=== PATIENT | male | born 1990 | race Caucasian/White ===

== ENCOUNTER 2016-08-22 12:13 | Observation (INO) | payer MEDICAID, OTHER ==
[2016-08-22] MEDS ORDERED: KETOROLAC 30 MG/1 ML SDV IVP ONE (12:46)
[2016-08-22] MEDS ORDERED: NS 1,000 ML IV ONE (12:46)
--- NOTE | 2016-08-22 12:46 | UCPHY ---
H & P Time Seen by Provider: 08/22/16 12:30 Patient Type: New HPI/ROS: 25-year-old male presents complaining of fevers chills cough that began on Sunday sudden onset with very poor appetite and severe body aches. patient is a former smoker denies smoking recently. Denies drug use denies IV drug use. Review of systems General Positive fever positive chills positive weakness positive poor appetite HEENT no eye pain no eye discharge. No eye redness, no sore throat Respiratory positive cough positive shortness of breath Cardiac no chest pain, no peripheral edema GI no abdominal pain, no diarrhea, no constipation, no nausea, no vomiting no flank pain, no hematuria, no dysuria Musculoskeletal no myalgias, no joint pain Heme no easy bruising, no easy bleeding Endo no polyuria, no polydipsia Skin no rashes, no pruritus Neuro no syncope, no dizziness, no headaches Psych is no suicidal ideation, no homicidal ideation Past Medical/Surgical History: childhood asthma, has not used an inhaler for the last 3 years Social History: alcohol socially, denies drug use Smoking Status: Former smoker Physical Exam: 25-year-old male alert and oriented appears ill, febrile, tachypnea tachycardic Atraumatic normocephalic Extraocular muscles intact, anicteric Nares mild yellowish discharge Oropharynx mild erythema no tonsillar swelling no exudate no uvular deviation, tolerating own secretions Neck supple no lymphadenopathy Lungs clear to auscultation bilaterally Heart Rapid regular rhythm without murmur rub or gallop Abdomen normoactive bowel sounds soft nontender Extremities no cyanosis clubbing or edema Skin no rash Constitutional: Initial Vital Signs Temperature (C) 38.0 C 08/22/16 12:17 Heart Rate 95 08/22/16 12:17 Respiratory Rate 20 08/22/16 12:17 Blood Pressure 127/63 H 08/22/16 12:17 O2 Sat (%) 90 L 08/22/16 12:17 O2 Delivery Mode Room Air O2 (L/minute) 2 Allergies/Adverse Reactions: Sulfa (Sulfonamide Antibiotics) Allergy (Verified 08/22/16 12:25) Home Medications: Medication Instructions Recorded NK [No Known Home Meds] 08/22/16 Medical Decision Making - Diagnostics Imaging: Chest x-ray bibasilar infiltrate ED Course/Re-evaluation: patient seen and evaluated for cough fevers chills body aches chest x-ray positive bibasilar infiltrate CBC within normal limits Lactate negative blood cultures pending patient given IV fluids, Toradol 30 mg IV, DuoNeb while in urgent care additionally IV antibiotics have been started impression community-acquired pneumonia plan ceftriaxone 2 g IV piggyback and Zithromax 500 mg IV piggyback patient to be transferred to [facility] to be admitted to the [facility] to Dr. Suresh - Data Points Laboratory Results: Laboratory Results 08/22/16 13:00 08/22/16 13:00 08/22/16 08/22/16 13:00 12:35 WBC 10.86 H 10^3/uL (3.80-9.50) RBC 5.32 10^6/uL (4.40-6.38) Hgb 15.7 g/dL (13.7-17.5) Hct 43.6 % (40.0-51.0) MCV 82.0 fL (81.5-99.8) MCH 29.5 pg (27.9-34.1) MCHC 36.0 g/dL (32.4-36.7) RDW 12.2 % (11.5-15.2) Plt Count 239 10^3/uL (150-400) MPV 9.6 fL (8.7-11.7) Neut % (Auto) 70.8 % (39.3-74.2) Lymph % (Auto) 13.4 L % (15.0-45.0) Cassia % (Auto) 14.7 H % (4.5-13.0) Eos % (Auto) 0.2 L % (0.6-7.6) Baso % (Auto) 0.4 % (0.3-1.7) Nucleat RBC Rel Count 0.0 % (0.0-0.2) Absolute Neuts (auto) 7.70 H 10^3/uL (1.70-6.50) Absolute Lymphs (auto) 1.45 10^3/uL (1.00-3.00) Absolute Monos (auto) 1.60 H 10^3/uL (0.30-0.80) Absolute Eos (auto) 0.02 L 10^3/uL (0.03-0.40) Absolute Basos (auto) 0.04 10^3/uL (0.02-0.10) Absolute Nucleated RBC 0.00 10^3/uL (0-0.01) Immature Gran % 0.5 % (0.0-1.1) Immature Gran # 0.05 10^3/uL (0.00-0.10) VBG Lactic Acid 0.9 mmol/L (0.7-2.1) Sodium 134 mEq/L (134-144) Potassium 3.4 L mEq/L (3.5-5.2) Chloride 98 mEq/L (97-110) Carbon Dioxide 23 mEq/l (22-31) Anion Gap 13 mEq/L (8-16) BUN 8 mg/dL (7-23) Creatinine 0.8 mg/dL (0.7-1.3) Estimated GFR > 60 Glucose 105 H mg/dL (70-100) Calcium 9.2 mg/dL (8.5-10.4) Influenza Typ A,B (DFA) NEGATIVE FOR FLU (NEGATIVE) Medications Given: Discontinued Medications Albuterol/Ipratropium (Duoneb) 3 ml IH EDNOW ONE Stop: 08/22/16 13:57 Last Admin: 08/22/16 14:10 Dose: 3 ml Sodium Chloride (Ns) 1,000 mls @ 0 mls/hr IV ONCE ONE PRN Reason: Wide Open Stop: 08/22/16 12:47 Last Admin: 08/22/16 13:05 Dose: 1,000 mls Ceftriaxone Sodium 2 gm/ (Dextrose) 50 mls @ 100 mls/hr IV EDNOW ONE PRN Reason: Protocol Stop: 08/22/16 15:01 Last Admin: 08/22/16 15:31 Dose: 50 mls Ketorolac Tromethamine (Toradol) 30 mg IVP EDNOW ONE Stop: 08/22/16 12:47 Last Admin: 08/22/16 13:05 Dose: 30 mg Departure - Departure Disposition: [facility] Clinical Impression: Pneumonia Condition: Good - PQRS PQRS Measurement: 134: Depression screening and followup, PRIME MD-PHQ2 (12 years and older) Over the last 2 weeks, how often have you been bothered by any of the following problems? 1. Feeling down, depressed, or hopeless? 2. Little interest or pleasure in doing things? Patient answered no to both 1 and 2 130: Documentation of medications. Reviewed all patient medications, doses, route and frequency. 226: Do you smoke? No. 47: 65 and older: Advanced care planning. Patient designates surrogate decision maker as spouse.. [Patient has advanced directive.] 51: 18 years old and older with diagnosis of COPD, spirometry performance. [Patient has no history of COPD 52: 18 years old and older with COPD and symptoms of COPD or FEV1<60% predicted prescribed a B Agonist. [Spirometry not performed; equipment not available.]
[2016-08-22 13:09] LABS: % IMMATURE GRANULYOCYTES 0.5 % (0.0-1.1); ABSOLUTE IMMATURE GRANULOCYTES 0.05 10^3/uL (0.00-0.10); ADD DIFF? NO; ADD MORPH? NO; ADD SCAN? NO; FRAGMENT RBC FLAG 0 (0-99); HEMATOCRIT 43.6 % (40.0-51.0); LEFT SHIFT FLG 20 (0-99); LIPEMIA HEMOLYSIS FLAG 90 (0-99); PLATELET CLUMPS FLAG 10 (0-99); RED CELL DISTRIBUTION WIDTH 12.2 % (11.5-15.2)
[2016-08-22 13:12] LABS: ATYPICAL LYMPHOCYTE FLAG 30 (0-99); HEMOGLOBIN 15.7 g/dL (13.7-17.5); MEAN CELL HEMOGLOBIN 29.5 pg (27.9-34.1); MEAN PLATELET VOLUME 9.6 fL (8.7-11.7); PLATELET COUNT 239 10^3/uL (150-400); RED BLOOD CELL COUNT 5.32 10^6/uL (4.40-6.38)
[2016-08-22 13:20] LABS: ANION GAP 13 mEq/L (8-16); CALCIUM 9.2 mg/dL (8.5-10.4); CARBON DIOXIDE 23 mEq/l (22-31); CHLORIDE 98 mEq/L (97-110); CREATININE 0.8 mg/dL (0.7-1.3); GLOMERULAR FILTRATION RATE > 60; GLUCOSE 105 mg/dL (70-100); POTASSIUM 3.4 mEq/L (3.5-5.2); SODIUM 134 mEq/L (134-144)
[2016-08-22] MEDS ORDERED: IPRATROPIUM/ALBUTEROL 3 ML DEYVIAL IH ONE (13:56)
--- NOTE | 2016-08-22 14:03 | DX ---
Chest, PA and Lateral Views, at 1:32 p.m. Clinical History: 25-year-old male with a fever and a cough. Comparison Study: None. Findings: The cardiac and mediastinal silhouette is normal in size; there is some mild central perihi lar bronchial wall thickening. There are patchy areas of right and left lower lobe alveolar consolida tion, consistent with pneumonia. There is no pleural effusion, peripheral interstitial edema, or pneu mothorax. The trachea is midline. The osseous structures are age-appropriate. Impression: Bibasilar infiltrates. Recommendation: Clinical correlation and followup to assure resolution are recommended.
[2016-08-22] MEDS ORDERED: cefTRIAXone 2 GM in D5W 50 ML IV ONE (14:32)
[2016-08-22] MEDS ORDERED: AZITHROMYCIN IV 500 MG in D5W 250 ML IV ONE (14:35)
[2016-08-22] MEDS ORDERED: cefTRIAXone 1 GM VIAL ONE (14:58)
[2016-08-22] MEDS ORDERED: NS 1,000 ML IV SCH (15:30)
[2016-08-22] MEDS ORDERED: PROTOCOL POTASSIUM 1 DOSE MISC PRN (21:53)
[2016-08-22] MEDS: IPRATROPIUM/ALBUTEROL 3 ML DEYVIAL IH PRN (22:02)
[2016-08-22] MEDS ORDERED: POTASSIUM CL 10 MEQ TAB PO ONE (22:20)
[2016-08-22] MEDS: guaiFENesin/CODEINE PHOS 10 ML UDCUP PO PRN (22:23)
[2016-08-22] MEDS: ACETAMINOPHEN 325 MG TAB PO PRN (22:23)
--- NOTE | 2016-08-22 22:55 | GHP ---
[f rep st] HISTORY AND PHYSICAL DATE OF ADMISSION: 08/22/2016 CHIEF COMPLAINT: Shortness of breath. HISTORY OF PRESENT ILLNESS: A 25-year-old male who presents with approximately 5 days of worsening s hortness of breath and cough. The patient reports that his mom had a similar illness prior to [facility]. 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 The patient reports that the cough has been productive of discolored sputum. Denies any blood or hemoptysis. Reports pain i n his chest from the cough, progressive, tight shortness of breath, subjective fevers, and chills. S ome nausea. No vomiting. Loose stools but very poor appetite and intake recently. No blood in his stools. No dysuria. No lower extremity edema. No rashes. PAST MEDICAL HISTORY: Childhood asthma, has not used an inhaler in over 10 years. SOCIAL HISTORY: Negative for tobacco. Very rare alcohol. Occasional marijuana in the evenings to h elp him sleep. FAMILY HISTORY: Negative for asthma. REVIEW OF SYSTEMS: A 10-point review of systems is negative with the exception of that reported in t he HPI. PHYSICAL EXAMINATION: VITAL SIGNS: Blood pressure 116/69, heart rate 97, respiratory rate 16, 94% o n 2 L. Afebrile at 36.9. GENERAL: This is uncomfortable-appearing young male in mild distress. KATHLEEN NT: Notable for dry mucous membranes. Eye exam is negative for any icterus. CARDIAC: Regular rate and rhythm. PULMONARY: Bibasilar crackles. No wheezing is auscultated. GASTROINTESTINAL: Positi ve bowel sounds. ABDOMEN: Soft and nontender. MUSCULOSKELETAL: Negative for any lower extremity e tien. SKIN: Negative for any rashes. NEUROLOGIC: Alert and oriented x3. PSYCHIATRIC: He is pleas ant and cooperative on interview and examination. LABORATORY DATA: White count is 10.8, hematocrit 43.6, platelets of 239, potassium of 3.4, creatinin e 0.8. Influenza is negative. Chest x-ray, which I personally reviewed and interpreted, shows bibas ilar infiltrates. ASSESSMENT AND PLAN: This is a 25-year-old male with childhood asthma presenting with shortness of b reath. 1. Acute community-acquired pneumonia. We will initiate empiric ceftriaxone and azithromycin. Bloo d cultures were obtained by the [facility]. We will give fluid resuscitation and follo w the patient's vital signs. 2. Acute hypoxic respiratory failure. Patient is not wheezing on examination. I suspect this is re lated to the pneumonia. Again, we will treat empirically, treat with DuoNebs and follow the patient' s clinical progress. The patient is not wheezing on examination and we will not start steroids at th is time. 3. Sore throat. We will treat the patient with guaifenesin with codeine to help with the cough and discomfort in his throat. 4. Leukocytosis secondary to community-acquired pneumonia. We will follow on empiric antibiotics. 5. History of asthma. The patient is not wheezing. Again, we will follow his examination on inhale d DuoNebs. No steroids at this time. 6. Prophylaxis: The patient can ambulate. 7. Diet: Regular. DISPOSITION: I expect in less than 2 midnights if he responds well to empiric antibiotics. I discus sed the case with [facility] doctor. The patient will be triaged to the [facility] for obser vation care. /[id number]/MODL
[2016-08-22] MEDS ORDERED: TEMAZEPAM 15 MG CAP PO ONE (23:30)
[2016-08-23] MEDS: IPRATROPIUM/ALBUTEROL 3 ML DEYVIAL IH PRN ×3 (03:53→15:04)
[2016-08-23] MEDS: guaiFENesin/CODEINE PHOS 10 ML UDCUP PO PRN ×2 (04:19→13:16)
[2016-08-23] MEDS: ACETAMINOPHEN 325 MG TAB PO PRN ×2 (07:56→15:58)
[2016-08-23 07:59] VITALS: BP 120/70; TEMP 98.3
[2016-08-23 08:20] LABS: HEMOGLOBIN 14.4 g/dL (13.7-17.5); MEAN CELL HEMOGLOBIN 28.9 pg (27.9-34.1); MEAN CELL HEMOGLOBIN CONCENTR. 35.1 g/dL (32.4-36.7); MEAN CELL VOLUME 82.2 fL (81.5-99.8); RED BLOOD CELL COUNT 4.99 10^6/uL (4.40-6.38); RED CELL DISTRIBUTION WIDTH 12.5 % (11.5-15.2)
[2016-08-23 08:40] LABS: POTASSIUM 3.7 mEq/L (3.5-5.2)
[2016-08-23] MEDS ORDERED: AZITHROMYCIN 250 MG TAB PO SCH (09:00)
[2016-08-23] MEDS ORDERED: ALBUTEROL 3 ML DEYVIAL ONE (09:40)
[2016-08-23 15:07] VITALS: PULSE 76; RESP 18; O2SAT 82
--- NOTE | 2016-08-23 16:06 | CPEKG ---
Heart Rate: 83 RR Interval: 723 P-R Interval: 156 QRSD Interval: 88 QT Interval: 368 QTC Interval: 433 P Cashiers: 56 QRS Cashiers: 39 T Wave Cashiers: 18 EKG Severity - NORMAL ECG - EKG Impression: SINUS RHYTHM Electronically Signed By: Ezra Hazel 24-Aug-2016 17:07:07
--- NOTE | 2016-08-23 16:45 | PDDCSUM ---
Discharge Summary Discharge Summary: DISCHARGE SUMMARY FOLLOW-UP ITEMS: Establish care with PCP DATE OF ADMISSION: 08/22/2016 DATE OF DISCHARGE: 08/23/2016 DISCHARGE DIAGNOSES: 1. Community-acquired pneumonia CONSULTATIONS: None PROCEDURES / IMAGING: Chest x-ray demonstrating bibasilar pneumonia CHIEF COMPLAINT: Acute shortness of breath and cough SUBJECTIVE: Patient continues to experience intermittent coughing but shortness of breath has improved PHYSICAL EXAM ON DISCHARGE: Systolic blood pressure is 110/130, heart rate 80 to 90, satting 91-92% on room air at rest, reduced air movement bilateral bases with inspiratory rhonchi, no expiratory wheezes or bronchial breath sounds, regular heart rate and rhythm LABS ON DISCHARGE: White blood cell count 9100, hemoglobin 14.4, lactic acid normal, flu DFA negative HOSPITAL COURSE BY PROBLEM: 1. Acute community-acquired pneumonia. Evidenced by basilar infiltrates on chest x-ray plus pulmonary symptoms plus hypoxia of 89% with exertion plus leukocytosis. Patient symptomatically improved with a combination of ceftriaxone and azithromycin, and he was transitioned to levofloxacin at time of discharge for a total of 7 days antibiotic therapy given his underlying chronic asthma. He also received as needed albuterol inhaler and symptomatic guaifenesin/codeine for coughing. We recommended that he establish care with a [facility] PCP after discharge. Patient's O2 sat was normal on room air at time of discharge and he was not experiencing shortness of breath with exertion. DISCHARGE MEDICATIONS: Please see official discharge medication reconciliation sheet in chart , levofloxacin 750 mg once daily, guaifenesin/codeine 10 mL as needed, albuterol MDI inhaler. DISCHARGE INSTRUCTIONS: Please establish follow-up care with Dr. Rodriguez or 1 of his associates.
== END 2016-08-23 19:05 | disposition home or self-care (01) ==
LOC: CED 12:13 → CEDHOLD 15:18 → F1N 18:48
PROVIDERS: ADMIT Hospitalist; ATTEND Internal Medicine
DX: J18.9 Pneumonia, unspecified organism (principal); J02.9 Acute pharyngitis, unspecified; D72.829 Elevated white blood cell count, unspecified; Z87.09 Personal history of other diseases of the respiratory system; Z88.2 Allergy status to sulfonamides
CPT/HCPCS: 71020; 93005; 96361; 96365; 96367; 96376; 99203; G0378; 80048-PO; 83605-PO; 85025-PO; 87400-PO; 96366-PO; G0463-PO; J0456; J0696; J1885

== ENCOUNTER 2016-08-28 17:27 | Emergency (ER) | payer OTHER | END 2016-08-28 17:47 | disposition left against medical advice (07) | LOC: CED 17:27 | DX: J18.9 Pneumonia, unspecified organism (principal); Z53.8 Procedure and treatment not carried out for other reasons ==